=== PATIENT | male | born 1975 | race Caucasian/White ===

== ENCOUNTER 2017-07-06 13:28 | Day surgery (SDC) | payer OTHER ==
[~2017-07-06 13:28] MED LIST: Buffered Lidocaine 0.9% SYRIN* 5 ML/SYR SYRINGE INTRADERM ONE; DiMENhydriNATE IV* 50 MG/ML VIAL IV PUSH PRN; Famotidine IV* 10 MG/ML 2 ML (20 mg) IV ONE; Morphine INJ* 2 MG/ML 1 ML CARPUJECT IV PRN; Naloxone* 0.4 MG/ML 1 ML VIAL IV PRN; PROCHLORPERAZINE INJ 5 MG/ML 2 ML VIAL IV PRN; Scopolamine 1.5 mg* PATCH TRANSDERM PRN; fentaNYL* 50 MCG/ML 2 ML VIAL (100 MCG VIAL) IV PRN; oxyCODONE/Acetamin 5/325 MG* TAB PO PRN
[2017-07-06] MEDS ORDERED: ceFAZolin 2 GM PREMIX (*) 2 GM/50 ML BAG IVPB ONE (13:29)
[2017-07-06] MEDS ORDERED: Famotidine IV* 10 MG/ML 2 ML (20 mg) ONE (13:29)
[2017-07-06] MEDS ORDERED: KETAMINE HCL* 50 MG/ML 10 ML VIAL ONE (14:02)
[2017-07-06] MEDS ORDERED: Midazolam* 1 MG/ML 10 ML VIAL (10 MG) ONE (14:02)
[2017-07-06] MEDS ORDERED: fentaNYL* 50 MCG/ML 2 ML VIAL (100 MCG VIAL) ONE (14:02)
[2017-07-06] MEDS ORDERED: EPINEPHRINE 1 MG/ML 1 ML VIAL ONE (14:42)
[2017-07-06] MEDS ORDERED: Bupivacaine 0.5% SDV PF* 10-30ML VIAL ONE (16:19)
[2017-07-06] MEDS ORDERED: Propofol* 10 MG/ML 20 ML BTL IV PUSH ONE (17:04)
[2017-07-06] MEDS ORDERED: Ondansetron INJ* 2 MG/ML VIAL ONE (17:04)
[2017-07-06] MEDS ORDERED: Bupivacaine 0.25% SDV* 30 ML ONE (17:04)
[2017-07-06] MEDS ORDERED: Dexamethasone IV* 4 MG/ML 1 ML (4 MG) ONE (17:04)
[2017-07-06] MEDS ORDERED: Lidocaine 2% PF * 5 ML VIAL ONE (17:04)
[2017-07-06] MEDS ORDERED: Ketorolac INJ* 30 MG/ML 1 ML VIAL ONE (17:04)
[2017-07-06 19:41] VITALS: BP 132/85
[2017-07-09] MEDS ORDERED: Scopolamine PATCH Remove* 1 NOTE MISC PATCH OFF ONE (07:01)
--- NOTE | 2017-07-09 15:30 | OP ---
DATE OF OPERATION: 07/06/07 - [facility] DATE OF : 75 SURGEON: Paolo Sanchez MD. RADIOGRAPHER TECHNOLOGIST: DONNA Knutson. A physician hr assistant was required for the length of the procedure for help with positioning, instrumentation, and closure. ANESTHESIOLOGIST: Dr. Giorgio Davis. ANESTHESIA: General anesthesia, regional interscalene block anesthesia, local anesthesia with 10 cc of 0.5% Marcaine without epinephrine. PRE-OP DIAGNOSIS: Right shoulder superior labral tear. POST-OP DIAGNOSES: 1. Right shoulder superior labral tear. 2. Right shoulder posterior labral tear. 3. Focal articular cartilage and defects of posterior glenoid and posterior humeral head, small. 4. Right shoulder low grade undersurface rotator cuff fraying, tear supraspinatus, infraspinatus. 5. Right shoulder mild subacromial bursitis. OPERATIVE PROCEDURES: 1. Open right shoulder proximal biceps tenodesis, subpectoral. 2. Right shoulder arthroscopic release of biceps and debridement superior labrum. 3. Right shoulder arthroscopic debridement posterior glenoid. 4. Right shoulder arthroscopic debridement undersurface fraying supraspinatus, infraspinatus rotator cuff tendons. 5. Right shoulder arthroscopic subacromial bursectomy. ANTIBIOTICS: 2 g Ancef IV. IV FLUIDS: Crystalloid 1600 cc. COMPLICATIONS: None. SPECIMEN: None. IMPLANTS: One Arthrex proximal biceps tenodesis button. ESTIMATED BLOOD LOSS: Minimal. INDICATIONS FOR PROCEDURE: The patient is a 42-year-old man, right hand dominant, who developed pain in March 2017. As detailed in my history and physical, the patient responded insufficiently to the nonoperative management and opted for surgery. He opted for an open proximal biceps tenodesis rather than simply a biceps tenotomy. I discussed the risks and potential complications of surgery included bleeding, infection, nerve or blood vessel injury, shoulder pain, stiffness, osteoarthritis, hardware failure. DESCRIPTION OF PROCEDURE: Preoperatively in preoperative holding area, the consent was signed. Operative extremity was marked in preoperative holding. The patient had an interscalene regional anesthetic block performed by Dr. Davis. The patient was taken to the operating room and placed supine on the operating room table. He was then converted in the lateral decubitus position prior to LMA. Axillary roll was placed. All bony prominences were padded. A beanbag was hardened. The right shoulder was placed in longitudinal traction with 15 pounds in the appropriate amount of forward flexion and abduction. LMA was then placed. Fine tuning of positioning was then produced. The right shoulder was prepped with ChloraPrep and then draped. Surgical time- out was performed. With a spinal needle we entered the right glenohumeral joint from posterior and 30 cc of normal saline was infused. A right shoulder posterior glenohumeral joint portal was then established using standard technique. Diagnostic arthroscopy was commenced. There was a flap of very frayed superior labrum that was falling down of much of the glenoid and appear to indicate there to be pathology about the superior labrum. No biceps tendinosis was appreciated. There was significant fraying about the posterior labrum and some fraying on the undersurface of the rotator cuff. No articular cartilage defects were at first appreciated. I established an anterior glenohumeral joint portal under direct visualization using the standard technique. I used a probe to lift up the superior labrum. It was clearly torn off the superior limb of the glenoid and there was 4 to 5 mm at least of lift off. At this point, I decided that I would treat the biceps. I entered an arthroscopic scissors from the anterior and cut the biceps. I used an arthroscopic shaver to smooth out the superior labrum. The fraying about the posterior labrum made visualization of the posterior labrum difficult, viewing from posterior. Therefore, I moved my arthroscope to anterior and this afforded me a better visualization of the posterior labrum. It was significantly frayed with part of it lifted up practically touching the humeral head. I entered a probe from posterior. Unfortunately, there did not seem to be any instability to the tear in the fraying. The labrum was firmly attached to the glenoid. Therefore, I decided no posterior labral repair was required. I entered an arthroscopic shaver from posterior and smoothed out the posterior labral frayed tissue. This made it look quite nice. Before any shaving had been done, I appreciated that there was a very focal several millimeter defect, grade 3 to 4 about the 9 o'clock position in the posterior glenoid, along the rim. I debrided that with the arthroscopic shaver as well. The patient it was noted from both posterior and then anterior had a small focal area of cartilage loss, grade 3 about the posterior inferior humeral head. I had previously evaluated the subscapularis in a variety of positions and found no tear. There was some fraying, at the anterior most aspect of the supraspinatus and a more posteriorly an infraspinatus. I viewed this from posterior and then from the anterior and just lightly smoothed out these frayed tissue. I put a spinal needle through an area of fraying and found it to be thick and as the patient did not have rotator cuff symptoms preoperatively I did not to get aggressive with that trying to treat with repair any rotator cuff pathology. However, I did want to look at the rotator cuff from above, given my intraarticular findings. I therefore removed all fluid and instruments from the glenohumeral joint and moved to the subacromial space from posterior and anterior. There was some mild bursitis, especially overlying the rotator cuff itself. I would say moderate bursitis most of it directly overlying the rotator cuff was present. I established a lateral subacromial portal under direct visualization. We used that to introduce an arthroscopic shaver to debride the synovium and better inspect the rotator cuff, which showed no clear tearing anywhere visualized. I debrided the bursitic tissue in the gutters and overlying rotator cuff. I removed the fluid and pancho and other instruments from the subacromial space. Arthroscopic skin incisions were closed with [id number] in twelve stitches using nylon 4-0 suture. Then the castro bag was softened and the patient was converted to a supine position before the castro bag was then re-hardened. Anesthesia had been carefully monitoring position of the head and neck during that transfer of position. I made a short, approximately 3 to 4 cm longitudinal incision over the anterior and medial aspect of the right upper arm centered just distal to the inferior edge of the pectoralis major tendon. I spread through the subcutaneous tissue palpated the pectoralis major tendon and proceeded to the bicipital grove where I encountered the long head of the biceps tendon. Retractors were placed. The long head biceps was removed from the wound. Biceps tendon was marked for the appropriate length tension relationship. Some anterior humerus was debrided with Bovie and periosteal elevator. A pin was used to drill the anterior cortex of the humerus. Button was applied to FiberWire suture after fiber loop stitch had been used to place 4 stitches in the biceps tendon. The loaded biceps button was then placed in the humerus, flipped, and the knot tied. Additional knots were tied when a new tenodesis stitch was placed. Redundant biceps tendon proximally was removed, sutures were cut, irrigation, instruments removed. Closure of the subcutaneous tissue with buried simple stitches using Vicryl 3-0 suture. Closure of the subcuticular layer of this incision was performed with a running stitch with Monocryl 4-0 suture. Mastisol followed by Steri-Strips. Local anesthetic was injected about the open incision. The open incision had placed a 4x4 and then a Tegaderm. At other incisions I placed Xeroform and 4x4s and ABDs. Foam tape applied to the whole dressing. Sling and abduction pillow. The patient was extubated and brought to the PACU. DISPOSITION: The patient will follow up in 10 to 14 days postoperatively for a wound check in clinic. Keflex, Percocet p.r.n. and aspirin postoperatively. Physical therapy to start within the first week postoperatively. [id number] #: [id number] MTDD
== END 2017-07-06 19:10 | disposition home or self-care (01) ==
LOC: OR 13:28
PROVIDERS: ATTEND Orthopaedic Surgery
DX: S43.431A Superior glenoid labrum lesion of right shoulder, initial encounter (principal); M75.51 Bursitis of right shoulder; S43.421A Sprain of right rotator cuff capsule, initial encounter; S46.811A Strain of other muscles, fascia and tendons at shoulder and upper arm level, right arm, initial encounter; M25.511 Pain in right shoulder; X50.3XXA Overexertion from repetitive movements, initial encounter; Y93.B2 Activity, push-ups, pull-ups, sit-ups; Y92.39 Other specified sports and athletic area as the place of occurrence of the external cause; G89.18 Other acute postprocedural pain
CPT/HCPCS: C1776; J0690; J1100; J1885; J2250; J2405; J2704; J3010